=== PATIENT | male | born 1965 | race Caucasian/White ===

== ENCOUNTER 2025-03-14 01:59 | Emergency (ER) | payer MEDICAID, SELFPAY ==
[2025-03-14 02:12] VITALS: PULSE 98; RESP 16; O2SAT 98; BMI 19.5
--- NOTE | 2025-03-14 02:34 | PC.NURSE ---
PT REFUSED TO ANSWER QUESTION AND TO HAVE VITALS TAKEN. PROVIDER NOTIFIED.
--- NOTE | 2025-03-14 03:00 | EKG_ITS ---
[facility] Test Date: 2025-03-14 Pat Name: MASOOD JENSEN Department: Room: - Gender: Male Certified Ophthalmic Medical Technician: : 1965 Requested By: Rodger Oro Order Number: [id number] Reading MD: Rodger Oro Measurements Intervals [place] Rate: 74 P: PA: QRS: -5 QRSD: 98 T: 74 QT: 424 QTc: 471 Interpretive Statements ATRIAL FIBRILLATION POSSIBLE SEPTAL MYOCARDIAL INFARCTION , PROBABLY OLD [30 ms Q WAVE IN V1/V2] ST DEPRESSION, CONSIDER SUBENDOCARDIAL INJURY [0.1+ mV ST DEPRESSION] Compared to ECG 12/21/2019 13:37:12 Myocardial infarct finding now present ST (T wave) deviation now present /store/S0/[id number].pdf
--- NOTE | 2025-03-14 03:00 | XR_ITS ---
Examination: AP chest single view TECHNIQUE: Portable AP upright chest single view Date and time: March 14, 2025 0612 hours Comparison December 21, 2019 INDICATIONS: Coughing today. FINDINGS: Normal heart size Lungs are clear. Moderate osteopenia IMPRESSION: No active disease.
--- NOTE | 2025-03-14 03:00 | XR_ITS ---
Examination: CT brain head without contrast. 2-D sagittal coronal reconstructions Date and time of exam:March 14, 2025 1720 hours Comparison December 21, 2019 INDICATIONS: Episodes altered mental status today CTDI: vol (mGy):49 DLP: (mGycm):992 Technique: Multiple CT axial sections of the brain have been obtained, 5 mm slice thickness. Contrast has not been administered. 2-D sagittal, coronal reconstructions have been obtained Low dose protocols were performed. One or more of the following dose reduction techniques were used; automated exposure control, adjustment of the mA and/or KV according to patient size, use of iterative reconstruction technique. Findings: No significant ventricular enlargement. Intra-axial or extra-axial hemorrhage density is not seen. No mass effect or midline shift Basal cisterns are not remarkable. Fourth ventricle is midline. Cranial vault intact. Fluid level right maxillary antrum Impression: Negative for acute hemorrhage, mass effect or midline shift Advise clinical correlation and follow up accordingly
[2025-03-14] MEDS: HALOPERIDOL LACT INJ 5 MG/ML VIAL 10 MG IM (03:22)
--- NOTE | 2025-03-14 04:28 | PD.EDPSYCH ---
ED Psych RME/HPI General Chief Complaint: Psychiatric Symptoms Stated Complaint: MENTAL EVALUATION Time Seen by Provider: 03/14/25 02:14 Arrival date/time: 03/14/25 01:59 RME / HPI RME / HPI Narrative: The patient is a 59-year-old male with significant past medical history of osteomyelitis of right second toe and undifferentiated psychiatric disorder was brought into the ED from his hospice facility with chief complaint of threatening the REFINERY OPERATOR ASSISTANT at facility to kill her. The patient was under his blanket, and REFINERY OPERATOR ASSISTANT at his facility took that blanket away from him, after which he was aggressive and moving to and fro on the hallway of his facility. The patient was brought to the ED for further psychiatric evaluation. The patient mentioned that he did not wanted to be touched, and would not let the nursing staff to take him vitals or IV lines. He reported doing well and denied any complaints. Related Data Previous Rx's ?Medication ?Instructions ?Recorded aripiprazole 5 mg tablet 10 mg (2 x 5 mg) PO QDAY #30 tabs 12/01/23 Allergies Allergy/AdvReac Type Severity Reaction Status Date / Time No Known Allergies Allergy Verified 03/14/25 02:12 Review of Systems Review of Systems ROS Unobtainable: other (Patient is unwilling to answer when interviewed about ROS.) ED Exam Narrative Physical exam: General: No acute distress, not allowing to do physical exam Psych: Aggressive and agitated Course Quality Measures none Orders Category Date Time Status Bedside COVID-19 Antigen Test NOW Care 03/14/25 03:05 Active Bedside Influenza A&B Antigen Test NOW Care 03/14/25 03:05 Active EKG (ED ONLY) *Do not use* NOW Care 03/14/25 03:02 Active In and Out Catheter X1 Care 03/14/25 03:00 Active Saline [Insert IV] NOW Care 03/14/25 03:[address] head/brain wo con Stat Exams 03/14/25 03:00 Ordered EKG (ED Only) Stat Exams 03/14/25 03:00 Ordered XR chest 1V portable Stat Exams 03/14/25 03:00 Ordered Acetaminophen Stat Lab 03/14/25 03:00 Ordered Alcohol, Blood Medical Stat Lab 03/14/25 03:00 Ordered CBC [CBC] Stat Lab 03/14/25 03:00 Ordered CMP [Comprehensive Metabolic Panel] Stat Lab 03/14/25 03:00 Ordered Drug Screen,Urine Stat Lab 03/14/25 03:01 Ordered Free T4 (Free Thyroxine) Stat Lab 03/14/25 03:00 Ordered Magnesium Stat Lab 03/14/25 03:00 Ordered Phosphorous Stat Lab 03/14/25 03:00 Ordered Salicylate Stat Lab 03/14/25 03:00 Ordered TSH [Thyroid Stimulating Hormone] Stat Lab 03/14/25 03:00 Ordered Troponin I Stat Lab 03/14/25 03:00 Ordered UA [Urinalysis] Stat Lab 03/14/25 03:01 Ordered DiphenhydrAMINE INJ [Benadryl Inj] Med 03/14/25 04:00 Discontinued 50 mg IM X1 ONE Haloperidol Lactate [Haldol Inj] Med 03/14/25 03:04 Discontinued 10 mg IM X1 ONE LORazepam [Ativan Inj] Med 03/14/25 04:00 Discontinued 2 mg IM X1 ONE Vital Signs Vital signs: Vital Signs Temperature 98.0 F 03/14/25 05:18 Pulse Rate 73 03/14/25 05:18 Respiratory Rate 18 03/14/25 05:18 Blood Pressure 104/71 03/14/25 05:18 Pulse Oximetry (%) 99 03/14/25 05:18 Oxygen Delivery Method Room Air 03/14/25 05:18 Psych MDM Narrative MDM Narrative:: The patient is a 59-year-old male with significant past medical history of osteomyelitis of right second toe and undifferentiated psychiatric disorder was brought into the ED from his hospice facility with chief complaint of threatening the REFINERY OPERATOR ASSISTANT at facility to kill her. The patient was under his blanket, and REFINERY OPERATOR ASSISTANT at his facility took that blanket away from him, after which he was aggressive and moving to and fro on the hallway of his facility. The patient was brought to the ED for further psychiatric evaluation. The patient mentioned that he did not wanted to be touched, and would not let the nursing staff to take him vitals or IV lines. He reported doing well and denied any complaints. The patient vital revealed 104/71, pulse 73, RR 18, temperature 98.0, saturating 99% on room air. Haloperidol 10 Mg IM x 1, 50 Mg IM x 1 and lorazepam 2 mg IM x 1. Further blood works and head CT pending. The patient is currently being held for 5150 psych hold. Patient data External records reviewed:: [facility] previous records Clinical information provided by:: patient and law enforcement Social determinants that could affect healthcare access:: mental health Patient has the following chronic illnesses:: See above How is presenting disease/condition affected by chronic disease/condition?: caused by Evaluation data The following diagnostics were reviewed and interpreted by me:: other (specify) (Pending results) Lab and/or radiology exams considered but not ordered:: None Interpretation Summary: See above Medications / Prescriptions Medications or Prescriptions considered but not ordered:: None Medication administrations:: Medication Administration History Discontinued Medications Diphenhydramine HCl (Diphenhydramine Inj 50 Mg/Ml Vial) 50 mg IM X1 ONE Stop: 03/14/25 04:01 Last Admin: 03/14/25 04:41 Dose: 50 mg Documented By: EE Haloperidol Lactate (Haloperidol Lact Inj 5 Mg/Ml Vial) 10 mg IM X1 ONE Stop: 03/14/25 03:05 Last Admin: 03/14/25 03:22 Dose: 10 mg Documented By: EE Lorazepam (Lorazepam 2 Mg/Ml Vial) 2 mg IM X1 ONE Stop: 03/14/25 04:01 Last Admin: 03/14/25 04:41 Dose: 2 mg Documented By: EE See above Consultations Consultation(s) initiated? (list below): No Diagnosis Psych Differential Diagnosis: acute psychosis and bipolar disorder Most likely diagnosis given after review of the tests above:: Undifferentiated psychosis Admission Indicated Admission indicated?: not indicated Explain why admission is indicated or not indicated:: To be decided by Dr. Cody who will be resuming care starting 6 AM on 03/14/2025. Admission Request Was there a request for admission?: No Disposition Plan Disposition Plan: other (specify) (To be decided after imaging and lab work.) Discharge Plan Prescriptions/Referrals Prescriptions/Med Rec: No Action aripiprazole 5 mg Tablet 10 mg PO QDAY Qty: 30 0RF Referrals: Adeline Ricks MD [Primary Care Provider] - In 1 week Problem List Clinical Impression: Acute and transient psychotic disorder Patient/Caregiver Discharge Instructions Print Language: Wolof
[2025-03-14] MEDS: LORazepam 2 MG/ML VIAL IM (04:41)
[2025-03-14] MEDS: DiphenhydrAMINE INJ 50 MG/ML VIAL IM (04:41)
--- NOTE | 2025-03-14 04:56 | PC.LAC ---
PATIENT IS REFUSING ALL LABS, EKG, SWABS AND VITALS. PROVIDER IS AWARE.
[2025-03-14 05:18] VITALS: BP 104/71; PULSE 73; RESP 18; TEMP 36.7; O2SAT 99
[2025-03-14 06:10] VITALS: BP 102/62; PULSE 76; RESP 18; TEMP 36.7; O2SAT 97
[2025-03-14 06:10] LABS: Basophils # (Auto) 0.1 Thou/mm3 (0.0-0.2); Basophils % (Auto) 1 % (0-2.5); Eosinophils # (Auto) 0.1 Thou/mm3 (0.0-0.5); Eosinophils % (Auto) 1 % (0-10); Hematocrit 38.7 % (41.0-53.0); Hemoglobin 13.1 g/dL (13.5-16.0); Immature Granulocytes % (Auto) 0 % (0-0); Immature Granulocytes Auto 0.02 Thou/mm3 (0.00-0.00); Lymphocytes # (Auto) 2.4 Thou/mm3 (1.0-4.8); Lymphocytes % (Auto) 29 % (10-50); Mean Corpuscular HGB Conc 33.9 g/dl (31.0-37.0); Mean Corpuscular Volume 92 fL (80-100); Monocytes # (Auto) 0.7 Thou/mm3 (0.0-0.8); Monocytes % (Auto) 8 % (0-12); Neutrophils # (Auto) 5.2 Thou/mm3 (1.8-7.7); Neutrophils % (Auto) 62 % (37-80); Nucleated Red Blood Cell % 0 /100 WBC (0); Platelet Count 203 Thou/mm3 (140-440); RDW Standard Deviation 44.5 fL (35.1-43.9); Red Blood Count 4.23 Miln/mm3 (4.50-5.90); White Blood Count 8.5 Thou/mm3 (3.8-10.6)
[2025-03-14 06:40] LABS: Acetaminophen < 2.0 mcg/mL (10.0-20.0); Alanine Aminotransferase < 7 U/L (10-49); Albumin, Serum 4.2 gm/dL (3.4-4.8); Albumin/Globulin Ratio 1.5 (1.2-2.2); Alcohol, Blood Medical < 3.0 mg/dL (0-10.0); Alkaline Phosphatase 61 U/L (46-116); Anion Gap 10 (7-16); Aspartate Amino Transferase 14 U/L (0-34); BUN/Creatinine Ratio 13 Ratio (12-20); Blood Urea Nitrogen 13 mg/dL (9-23); Calcium 8.9 mg/dL (8.3-10.6); Calcium (Corrected) 8.9 mg/dL (8.5-10.1); Carbon Dioxide 24.2 mMol/L (20.0-31.0); Chloride 107 mMol/L (98-107); Estimated Creatinine Clearance 80.6 mL/min (>60); Free T4 (Free Thyroxine) 1.52 ng/dL (0.89-1.76); Globulin 2.8 gm/dL (2.3-3.5); Glucose 82 mg/dL (74-106); Magnesium 1.8 mg/dL (1.6-2.6); Osmolality,Calculated 280 (275-295); Phosphorous 2.4 mg/dL (2.4-5.1); Potassium 3.6 mMol/L (3.4-5.1); Salicylate < 3.0 mg/dL; Sodium 141 mMol/L (136-145); Thyroid Stimulating Hormone 2.64 uIU/mL (0.55-4.78); Troponin I < 0.020 ng/mL (0.0-0.045); eGFR > 60 See Note
--- NOTE | 2025-03-14 08:46 | PC.NURSE ---
Patient returned from CT via gurney. Patient did not cooperated with completing exam at this time.
--- NOTE | 2025-03-14 09:10 | EDNOTE_ITS ---
Emergency Room Addendum <Tamera Melo - Last Filed: 03/14/25 15:34> Addendum Narrative: 0600: Care assumed from resident Dr. Oro. Past medical, surgical, social and family history reviewed. Vitals and home medications reviewed. Results and treatment plan discussed. I will assume the care of the patient at this time and will follow the patient, pending medical clearance for mental health evaluation. The patient was placed in ED observation care at 03/14/2025 at 0600 hours. The patient was placed in ED observation care because of pending mental health evaluation or undifferentiated decompensated behavioral health evaluation, no behavioral health bed available. The patients past medical history, social history, and family history were reviewed. The plan of care will include serial examinations. While in ED observation the patient will have access to water, food, and pe rsonal hygiene. If the patient takes home medication(s), they will be continued in ED observation. EKG INTERPRETATION: EKG#1: EKG at 0538 hours.Interpreted by me: atrial fibrillation, rate 74, significant artifact, baseline wander, unable to interpret leads IV and III, mild IVCD, unable to interpret V2, V4, V5, V6, unable to determine primary pacemaker. RADIOLOGY: Ordering Physician: Rodger Oro Date of Service: 03/14/25 Procedure(s): XR chest 1V portable Accession Number(s): [id number] cc: Rodger Oro; Adeline Ricks MD; Quan Coleman MD~ Examination: AP chest single view TECHNIQUE: Portable AP upright chest single view Date and time: March 14, 2025 0612 hours Comparison December 21, 2019 INDICATIONS: Coughing today. FINDINGS: Normal heart size Lungs are clear. Moderate osteopenia IMPRESSION: No active disease. Dictated By: Quan Coleman MD Signed By: <Electronically signed by Quan Coleman MD in OV> 03/14/25 0753 <Christine Cody MD - Last Filed: 03/15/25 09:29> Addendum Narrative: 0600: Care assumed from resident Dr. Oro. Past medical, surgical, social and family history reviewed. Vitals and home medications reviewed. Results and treatment plan discussed. I will assume the care of the patient at this time and will follow the patient, pending medical clearance for mental health evaluation. The patient was placed in ED observation care at 03/14/2025 at 0600 hours. The patient was placed in ED observation care because of pending mental health evaluation or undifferentiated decompensated behavioral health evaluation, no behavioral health bed available. The patients past medical history, social history, and family history were reviewed. The plan of care will include serial examinations. While in ED observation the patient will have access to water, food, and personal hygiene. If the patient takes home medication(s), they will be continued in ED observation. EKG INTERPRETATION: EKG#1: EKG at 0538 hours.Interpreted by me: irregular rhythm, rate 74, significant artifact, baseline wander, unable to interpret leads IV and III, mild IVCD, unable to interpret V2, V4, V5, V6, unable to de termine primary pacemaker. RADIOLOGY: Ordering Physician: Rodger Oro Date of Service: 03/14/25 Procedure(s): XR chest 1V portable Accession Number(s): [id number] cc: Rodger Oro; Adeline Ricks MD; Quan Coleman MD~ Examination: AP chest single view TECHNIQUE: Portable AP upright chest single view Date and time: March 14, 2025 0612 hours Comparison December 21, 2019 INDICATIONS: Coughing today. FINDINGS: Normal heart size Lungs are clear. Moderate osteopenia
[2025-03-14 10:39] VITALS: BP 113/59; PULSE 74; RESP 18; TEMP 36.7; O2SAT 97
[2025-03-14 12:22] VITALS: BP 110/57; PULSE 72; RESP 18; TEMP 36.7; O2SAT 95
--- NOTE | 2025-03-14 14:34 | PC.CC ---
Patient was BIBA on a 5150-Hold by [place] [employer] Officer Víctor for Danger to Others. Patient is pending medical clearance for a mental health evaluation.
--- NOTE | 2025-03-14 16:39 | PC.NURSE ---
Patient OOB ambulating up to BR with no difficulty. Followed by sitter. Will continue to monitor.
[2025-03-14 16:53] LABS: Collection Type, Urine Catheter
[2025-03-14 16:59] VITALS: BP 113/70; PULSE 74; RESP 18; TEMP 36.3; O2SAT 100
[2025-03-14 17:06] LABS: Amorphous Crystals,Urine Present (Absent); Bacteria,Urine Rare; Bilirubin,Urine Negative (Negative); Blood,Urine Negative (Negative); Clarity,Urine Clear (Clear/Hazy); Color,Urine Yellow (Lt Yel-Yel); Glucose, Urine Negative (Negative); Ketones,Urine Negative (Negative); Leukocyte Esterase,Urine Negative (Negative); Nitrite,Urine Negative (Negative); PH,Urine 5.5 (5.0-7.0); Protein,Urine Negative (Neg - Trace); RBC,Urine 1 /hpf (0-3); Specific Gravity,Urine 1.021 (1.001-1.035); Squamous Epithelial Cell,Urine < 1 /hpf (0-5); Urobilinogen,Urine Negative mg/dL (0.0-1.0); WBC,Urine 2 /hpf (0-5)
--- NOTE | 2025-03-14 17:08 | PC.NURSE ---
Patient sitting up in bed eating at this time with no difficulty.
[2025-03-14 17:16] LABS: Amphetamine/Methamp Scrn,U Negative (Negative); Barbiturate Screen,Urine Negative (Negative); Benzodiazepines Screen,Urine Negative (Negative); Benzoylecgonine Screen, Ur Negative (Negative); Fentanyl Screen,Urine Negative (Negative); Opiate Screen,Urine Negative (Negative); THC Screen,Urine Negative (Negative)
--- NOTE | 2025-03-14 18:24 | PC.CC ---
Sigrid SIFUENTES was notified by classification and treatment director Moira that patient is medically cleared for evaluation. Sigrid SIFUENTES introduced self, role, and reason for visit to the patient. Patient appeared to be alert and oriented to self and location. Patient would not engage with this appeals writer and made mininal eye contact. Patient stated, I don't want to talk right now let me rest. ASW attempted to engage with patient for assessment and patient would not respond. medical services manager to re-attempt to engage patient in evaluation in the AM.
--- NOTE | 2025-03-14 21:02 | EDNOTE_ITS ---
ED Psych RME/HPI General Chief Complaint: Psychiatric Symptoms Stated Complaint: MENTAL EVALUATION Time Seen by Provider: 03/14/25 02:14 Arrival date/time: 03/14/25 01:59 RME / HPI RME / HPI Narrative: The patient is a 59-year-old male with significant past medical history of osteomyelitis of right second toe and undifferentiated psychiatric disorder was brought into the ED from his hospice facility with chief complaint of threatening the PHARMACY BENEFIT MANAGER at facility to kill her. The patient was under his blanket, and PHARMACY BENEFIT MANAGER at his facility took that blanket away from him, after which he was aggressive and moving to and fro on the hallway of his facility. The patient was brought to the ED for further psychiatric evaluation. The patient mentioned that he did not wanted to be touched, and would not let the nursing staff to take him vitals or IV lines. He reported doing well and denied any complaints. Related Data Previous Rx's ?Medication ?Instructions ?Recorded aripiprazole 5 mg tablet 10 mg (2 x 5 mg) PO QDAY #30 tabs 12/01/23 Allergies Allergy/AdvReac Type Severity Reaction Status Date / Time No Known Allergies Allergy Verified 03/14/25 02:12 Review of Systems Review of Systems Systems Reviewed: All systems reviewed, normal except as documented Past Medical History Past Medical History CARDIAC: Positive Congestive Heart Failure RESPIRATORY: Negative Chronic Obstructive Pulmonary Disease (COPD) GENITOURINARY: Negative Renal Disease ENDOCRINE: Negative Diabetes Mellitus Type 1 or Diabetes Mellitus Type 2 PSYCHO/SOCIAL: Positive Schizophrenia Social History SMOKING STATUS: Former smoker SUBSTANCE USE: does not use (denies) ED Exam Narrative Physical exam: General: No acute distress, Alert and Oriented x 3 HEENT: Moist mucous membranes, oropharynx clear Neck: Supple, No masses, No JVD CVS: S1S2 Regular rate and rhythm, No murmurs, rubs or gallops Lungs: Clear to auscultation with no accessory use, no wheeze no rhonchi Abd: Soft, NT/ND, +BS, no organomegaly Ext: No edema, bilateral lower limb diminished peripheral pulses Skin: Dark rash over lower limb around bilateral ankle Psych: Mildly agitated. Course Course Course Narrative: 6 PM: I resumed care from Dr. Cody, and reviewed the patient's vitals that were stable, CBC fairly stable, chemistry panel fairly stable with UA negative. U tox was negative along with Ethyl alcohol, acetaminophen and salicylates. Hea d CT was negative for acute hemorrhage, mass effect or midline shift. Chest x- ray revealed no active disease. 6:50 PM: The patient was examined and evaluated and was medically cleared for psychiatry evaluation. 7:02 PM: Psychiatry evaluation consultation was placed. Quality Measures none Orders Category Date Time Status Bedside COVID-19 Antigen Test NOW Care 03/14/25 03:05 Completed Bedside Influenza A&B Antigen Test NOW Care 03/14/25 03:05 Completed EKG (ED ONLY) *Do not use* NOW Care 03/14/25 03:02 Completed In and Out Catheter X1 Care 03/14/25 03:00 Active Saline [Insert IV] NOW Care 03/14/25 03:05 Completed Referral Psych Eval Stat Cons 03/14/25 19:02 Active Diet Regular Diet 03/14/[address] head/brain wo con Stat Exams 03/14/25 03:00 Completed EKG (ED Only) Stat Exams 03/14/25 03:00 Ordered XR chest 1V portable Stat Exams 03/14/25 03:00 Completed Acetaminophen Stat Lab 03/14/25 05:55 Completed Alcohol, Blood Medical Stat Lab 03/14/25 05:55 Completed CBC [CBC] Stat Lab 03/14/25 05:55 Completed CMP [Comprehensive Metabolic Panel] Stat Lab 03/14/25 05:55 Completed Drug Screen,Urine Stat Lab 03/14/25 16:45 Completed Free T4 (Free Thyroxine) Stat Lab 03/14/25 05:55 Completed Magnesium Stat Lab 03/14/25 05:55 Completed Phosphorous Stat Lab 03/14/25 05:55 Completed Salicylate Stat Lab 03/14/25 05:55 Completed TSH [Thyroid Stimulating Hormone] Stat Lab 03/14/25 05:55 Completed Troponin I Stat Lab 03/14/25 05:55 Completed UA [Urinalysis] Stat Lab 03/14/25 16:45 Completed DiphenhydrAMINE INJ [Benadryl Inj] Med 03/14/25 04:00 Discontinued 50 mg IM X1 ONE Haloperidol Lactate [Haldol Inj] Med 03/14/25 03:04 Discontinued 10 mg IM X1 ONE LORazepam [Ativan Inj] Med 03/14/25 04:00 Discontinued 2 mg IM X1 ONE Vital Signs Vital signs: Vital Signs Temperature 98.0 F 03/14/25 05:18 Pulse Rate 73 03/14/25 05:18 Respiratory Rate 18 03/14/25 05:18 Blood Pressure 104/71 03/14/25 05:18 Pulse Oximetry (%) 99 03/14/25 05:18 Oxygen Delivery Method Room Air 03/14/25 05:18 Psych MDM Narrative MDM Narrative:: The patient is a 59-year-old male with significant past medical history of osteomyelitis of right second toe and undifferentiated psychiatric disorder was brought into the ED from his hospice facility with chief complaint of threatening the PHARMACY BENEFIT MANAGER at facility to kill her. The patient was under his blanket, and PHARMACY BENEFIT MANAGER at his facility took that blanket away from him, after which he was aggressive and moving to and fro on the hallway of his facility. The patient was brought to the ED for further psychiatric evaluation. The patient mentioned that he did not wanted to be touched, and would not let the nursing staff to take him vitals or IV lines. He reported doing well and denied any complaints. The patient vital revealed 104/71, pulse 73, RR 18, temperature 98.0, saturating 99% on room air. Haloperidol 10 Mg IM x 1, 50 Mg IM x 1 and lorazepam 2 [address] IM [address] head was negative for acute hemorrhage, midline shift or mass effect. Chest x-ray was negative for any active disease. The patient was further medically cleared for psychiatrist evaluation. The patient is currently being held for 5150 psych hold. Patient data External records reviewed:: [facility] previous records Clinical information provided by:: patient and law enforcement Social determinants that could affect healthcare access:: mental health Patient has the following chronic illnesses:: See above How is presenting disease/condition affected by chronic disease/condition?: caused by Evaluation data The following diagnostics were reviewed and interpreted by me:: lab results, radiology exam(s) and EKG tracing(s) Lab and/or radiology exams considered but not ordered:: None Interpretation Summary: See above Medications / Prescriptions Medications or Prescriptions considered but not ordered:: None Medication administrations:: Medication Administration History Discontinued Medications Diphenhydramine HCl (Diphenhydramine Inj 50 Mg/Ml Vial) 50 mg IM X1 ONE Stop: 03/14/25 04:01 Last Admin: 03/14/25 04:41 Dose: 50 mg Documented By: ROSA Haloperidol Lactate (Haloperidol Lact Inj 5 Mg/Ml Vial) 10 mg IM X1 ONE Stop: 03/14/25 03:05 Last Admin: 03/14/25 03:22 Dose: 10 mg Documented By: ROSA Lorazepam (Lorazepam 2 Mg/Ml Vial) 2 mg IM X1 ONE Stop: 03/14/25 04:01 Last Admin: 03/14/25 04:41 Dose: 2 mg Documented By: ROSA See above Consultations Consultation(s) initiated? (list below): Yes Consultation #1 (Physician, Specialty, Details): Psychiatry eval. Diagnosis Psych Differential Diagnosis: acute psychosis and bipolar disorder Most likely diagnosis given after review of the tests above:: Undifferentiated psychosis Admission Indicated Admission indicated?: not indicated Explain why admission is indicated or not indicated:: To be decided by Dr. Cody who will be resuming care starting 6 AM on 03/14/2025. Admission Request Was there a request for admission?: No Disposition Plan Disposition Plan: other (specify) (To be decided after psychiatric eval.) Discharge Plan Prescriptions/Referrals Prescriptions/Med Rec: No Action aripiprazole 5 mg Tablet 10 mg PO QDAY Qty: 30 0RF Referrals: Adeline Ricks MD [Primary Care Provider] - In 1 week Problem List Clinical Impression: Acute and transient psychotic disorder Patient/Caregiver Discharge Instructions Print Language: Sinhala
--- NOTE | 2025-03-14 22:22 | PC.NURSE ---
patient sitting calmly in bed eating meal tray.
--- NOTE | 2025-03-15 06:50 | PC.NURSE ---
Patient ambulating with a strong and steady gait to the bathroom.
--- NOTE | 2025-03-15 08:02 | EDNOTE_ITS ---
Emergency Room Addendum Addendum Narrative: 0600: Care assumed from Dr. Lockett, the previous shift emergency physician. Past medical, surgical, social and family history reviewed. Vitals and home medications reviewed. I will assume the care of the patient at this time, pending mental health evaluation. Please refer to the emergency department record for history and examination from initial visit.?The following addendum documentation note is intended to reflect any pending information, findings, or radiology results not included in the patient?s initial chart. call circuit worker has met with the patient and rescinded the 5150 hold. State a safety plan is in place. Will DC patient home.
[2025-03-15 08:05] VITALS: BP 100/64; PULSE 95; RESP 19; TEMP 36.5; O2SAT 100
--- NOTE | 2025-03-15 08:14 | PC.NURSE ---
report given to [facility] bedside RN
--- NOTE | 2025-03-15 09:06 | PC.CC ---
BEAR Garcia attempted to arrange transportation via [facility], but they informed public relations writer that they could not locate the pt in their system. Craft Demonstrator then contacted [employer] and arranged transportation for the pt. [facility] reported they would call back with a p/u ETA. As of this writing, public relations writer is waiting for a call back.
--- NOTE | 2025-03-15 09:11 | PC.CC ---
BEAR Garcia completed a face to face re-evaluation with the pt at bedside ER #[id number]. ASW explained my role and reasons why mortgage or loan underwriter is assessing the pt this AM. Pt understood that the assessment is for a re-evaluation of his 5150 Hold by PPD. ASW assessed for SI/HI, DTS/DTO and pt strongly denied SI/HI and DTS/DTO. Pt stated he feels safe at his residence and enjoys being there and reports the SN[facility] takes good care of him. Pt reported that there are moments he gets upset and says things he does not mean, but overall he does not mean harm against anyone. [employer] and pt discussed a safety plan meaning that he needs to thoroughly think things through and use his words and actions in a civil manner, as it may come off as intimidating to others, especially when he is upset. pt stated he understood and agreed that part of his plan would be to be mindful of his actions. Pt strongly denies wanting to harm others and does not want the SNF staff to feel unsafe. Pt was viewed as genuine in his responses and was alert oriented X3. Pt was aware of his surroundings and understood the reason he was here at the hospital. Pts demeanor was calm and respectful. Pt was conversational and present to place and time. BEAR Garcia staffed the case with KRISTINE Prater and it was determined that the pts hold will be rescinded. RN is aware of the hold being rescinded ER provider Escobar is aware and agrees to the hold being rescinded. BEAR informed [facility] and spoke with Chantell, that pt will be d/c today at 1040am. [facility] will p/u pt this AM at 1040.
== END 2025-03-15 11:21 | disposition skilled nursing facility (03) ==
PROVIDERS: Emergency Provider Student in an Organized Health Care Education/Training Program; PCP Hospitalist
DX: Z00.8 Encounter for other general examination (principal); F23 Brief psychotic disorder; R05.9 Cough, unspecified; R41.82 Altered mental status, unspecified; I48.91 Unspecified atrial fibrillation; I50.9 Heart failure, unspecified
CPT/HCPCS: 36415; 70450; 71045; 80053; 80307; 80320; 80329; 81001; 83735; 84100; 84439; 84443; 84484; 85025; 87400; 87811; 93005; 96127; 96372; 99284; J1200; J1630; J2060; G0480